=== PATIENT | female | born 1955 | race Caucasian/White ===

== ENCOUNTER 2021-03-16 15:36 | Outpatient (CLI) | payer MEDICARE, SELFPAY ==
--- NOTE | ~2021-03-16 | XR_ITS ---
EXAMINATION: XR chest 2V EXAM DATE: 03/16/2021 15:51 INDICATION: R09.89 - Doctor [place] Crackling In Lungs Today, No Other Hx. TECHNIQUE: Frontal and lateral projections of the chest obtained and reviewed. There is no prior charleen dy for comparison. FINDINGS: The lungs are hyperinflated which can be seen with chronic obstructive pulmonary disease ( a clinical diagnosis of functional impairment), but is not diagnostic of it. The lungs are clear. Th ere are no pleural effusions. The cardiomediastinal silhouette is within normal limits. There is no pneumothorax suspected. The bones and soft tissues are unremarkable. IMPRESSION: 1. No acute cardiopulmonary findings. 2. Hyperinflation. Reviewed, dictated and finalized at location A.
== END 2021-03-16 15:37 | disposition home or self-care (01) ==
LOC: ANHIMG 15:42
PROVIDERS: PCP Family Medicine; Visit Provider Family Medicine
DX: R09.89 Other specified symptoms and signs involving the circulatory and respiratory systems (principal)
CPT/HCPCS: 71046

== ENCOUNTER → 2021-05-14 14:43 | Outpatient (CLI) | payer MEDICARE, SELFPAY ==
--- NOTE | ~2021-05-14 | MM_ITS ---
EXAMINATION: MM screening raghu BI w chanelle HISTORY: Screening mammogram TECHNIQUE: Craniocaudal and mediolateral oblique 3-D tomosynthesis images were obtained and synthetic 2-D images were generated. Bilateral rotated lateral CC views. CAD analysis was submitted and interp reted. COMPARISON: No prior mammogram is available for comparison at this institution. BREAST PARENCHYMAL COMPOSITION: The breasts are heterogeneously dense, which may obscure small masses . FINDINGS: There is no evidence of suspicious mass, calcification, or architectural distortion to sugg est malignancy in either breast. There has been no suspicious interval change. IMPRESSION: 1. No mammographic evidence of malignancy. 2. Recommend routine screening mammography in one year. BI-RADS Category 1: Negative Reviewed, dictated and finalized at location A. COUNSELOR
== END ==
PROVIDERS: PCP Family Medicine; Visit Provider Family Medicine
DX: Z12.31 Encounter for screening mammogram for malignant neoplasm of breast (principal)
CPT/HCPCS: 77063; 77067

== ENCOUNTER 2021-05-18 00:37 | Day surgery (SDC) | payer MEDICARE, SELFPAY ==
[2021-04-29 14:58] VITALS: BMI 19.2
--- NOTE | 2021-05-18 08:24 | P.PNAN_ITS ---
Anes - Initial Pre Proc Eval Procedure: Operation Date: 05/18/21 13:00 Proposed Procedures p Screening Colonoscopy - Jean Pierre Mary MD Date/Time: 05/18/21 08:24 Surgeon: Jean Pierre Mary MD Pre Op Diagnosis: neoplasm screening Patient Data Age: 65 Gender: F Height: 1.75 m Weight: 59 kg Allergies Allergy/AdvReac Type Severity Reaction Status Date / Time No Known Allergies Allergy Verified 05/18/21 12:01 Home Medications Medication Instructions Recorded Confirmed Type loratadine 10 mg tablet 10 mg PO DAILY 03/16/21 04/29/21 History multivitamin 1 tablet PO DAILY 03/16/21 04/29/21 History Patient hx anesthesia problems: none Family hx anesthesia problems: none Results Review: All pre-operative results and documents have been reviewed as part of the pre-operative evaluation. [facility], [facility] Past Medical History Medical History (Updated 03/16/21 @ 15:04 by Andrzej Escobar MD) Abnormal lung sounds Nodule of skin of foot Screen for colon cancer Screening for lipid disorders Screening mammogram for breast cancer Seasonal allergies Family History Family History Other Breast cancer Hodgkin lymphoma Lung cancer Social History Social History Years smoked: 10 Smoking status: Former smoker Alcohol intake: current Drinks per week: 14 Alcohol use details: BEER OR WINE Substance use: current Substance use type: marijuana Other substance usage details: MAYBE ONCE A MONTH Living arrangements: with family Spiritual care concerns: No Anes - Eval Final PreProcedure Day of Procedure 05/18/21 08:24 Patient weight: thin Heart: regular rate and rhythm Lungs: clear to auscultation and normal air movement Airway: Mallampati scale class II Neurological: alert and oriented Last oral intake: >/= 8 hours ASA classification: III Emergent: no Anesthetic plan: proceed Anesthesia type and monitoring: general GIVS and standard monitoring Results Review: All pre-operative results and documents have been reviewed as part of the pre-operative evaluation. Informed Consent: The patient's anesthetic plan and its attendant risks and benefits were discussed with the patient/family/POA. Questions were solicited and answers provided to the satisfaction of the patient/family/POA.
[2021-05-18 12:02] VITALS: BP 143/79; PULSE 64; RESP 18; TEMP 36.1; O2SAT 97; BMI 19.8
[2021-05-18] MEDS: LACTATED RINGERS 1,000 ML 150 ML IV CONT (12:19)
--- NOTE | 2021-05-18 13:06 | PM.HPGS ---
History of Present Illness History of Present Illness Consent: Risks, benefits, and alternatives have been discussed and questions answered. Patient agrees to proceed with procedure. Chief complaint: neoplasm screening Narrative: Natalie Tejada is a 65 year old female here for screening colonoscopy, last one 2004 Review of Systems Constitutional: Constitutional: Denies headache(s) and Denies weakness Eyes: Eyes: Denies blurry vision ENT: Reports Normal hearing present, Denies headache(s) and Denies neck pain Cardiovascular: Cardiovascular: Denies chest pain and Denies dyspnea Respiratory: Respiratory: Denies dyspnea Gastrointestinal: Gastrointestinal: Reports no additional gastrointestinal complaints Genitourinary: Genitourinary: Denies dysuria Musculoskeletal: Musculoskeletal: Denies neck pain Integumentary/Breasts: Skin/Breast: Denies dry skin Neurologic: Reports Normal hearing present, Denies headache(s) and Denies weakness Psychiatric: Psychiatric: Denies anxiety Endocrine: Endocrine: Denies change in body appearance Hematologic/Lymphatic: Hematologic/Lymphatic: Denies easy bleeding Allergic/Immunologic: Allergic/Immunologic: Denies urticaria PMFSH Past Medical History Medical History (Updated 03/16/21 @ 15:04 by Andrzej Escobar MD) Abnormal lung sounds Nodule of skin of foot Screen for colon cancer Screening for lipid disorders Screening mammogram for breast cancer Seasonal allergies Family History Family History Other Breast cancer Hodgkin lymphoma Lung cancer Social History Social History Years smoked: 10 Smoking status: Former smoker Alcohol intake: current Drinks per week: 14 Alcohol use details: BEER OR WINE Substance use: current Substance use type: marijuana Other substance usage details: MAYBE ONCE A MONTH Living arrangements: with family Spiritual care concerns: No Meds Home Medications and Allergies Home Medications Medication Instructions Recorded Confirmed Type loratadine 10 mg tablet 10 mg PO DAILY 03/16/21 04/29/21 History multivitamin 1 tablet PO DAILY 03/16/21 04/29/21 History Allergies Allergy/AdvReac Type Severity Reaction Status Date / Time No Known Allergies Allergy Verified 05/18/21 12:01 Vital Signs Vital Signs - 24 hr 05/18/21 12:02 Temperature 97 F L Pulse Rate 64 Respiratory Rate 18 Blood Pressure 143/79 H Pulse Oximetry 97 Exam Const: General: comfortable and no acute distress HENMT: General nose exam: Normal nares present Eyes: General: appearance normal, both eyes and all related structures Neck: Neck: no JVD Resp: Auscultation: clear to auscultation bilaterally Cardio: Rate: regular rate Rhythm: regular rhythm GI: Inspection: non-distended GI Palp: Yes Soft to palpation Skin: General skin exam: normal color Neuro: General: gait normal Speech: normal speech Extrem: General: normal to inspection Psych: Mental Status: mental status grossly normal Assessment and Plan Assessment and plan (1) Screen for colon cancer: Code(s): Z12.11 - Encounter for screening for malignant neoplasm of colon Status: Acute Assessment and Plan: colonoscopy
[2021-05-18 13:30] VITALS: BP 154/91; PULSE 80; RESP 18; O2SAT 98
[2021-05-18 13:40] VITALS: BP 136/72; PULSE 76; RESP 19; O2SAT 100
[2021-05-18 13:50] VITALS: BP 119/53; PULSE 64; RESP 16; O2SAT 100
== END 2021-05-18 14:08 | disposition home or self-care (01) ==
PROVIDERS: PCP Family Medicine; Visit Provider Internal Medicine Gastroenterology
PROC: 0DJD8ZZ Inspection of Lower Intestinal Tract, Via Natural or Artificial Opening Endoscopic (ICD-10-PCS; CPT 45378; principal; 2021-05-18 13:00)
DX: Z12.11 Encounter for screening for malignant neoplasm of colon (principal); D12.0 Benign neoplasm of cecum; K63.5 Polyp of colon; K64.8 Other hemorrhoids; F12.90 Cannabis use, unspecified, uncomplicated; Z87.891 Personal history of nicotine dependence
CPT/HCPCS: 45380; 45385; 88305; J2704; J7120

== ENCOUNTER 2022-01-31 09:09 | Emergency (ER) | payer MEDICARE, SELFPAY ==
--- NOTE | 2022-01-31 09:11 | ED.SKABFB ---
HPI - Skin/Abscess/Foreign Bdy General Chief complaint: Animal Bite Stated complaint: cat bite on right arm/index finger Time Seen by Provider: 01/31/22 09:22 Source: patient and RN notes reviewed Mode of arrival: ambulatory Limitations: no limitations History of Present Illness HPI narrative: 66 year old female presents with concern for cat bite. She reports she was handling her cat yesterday at 1pm when it bit her right forearm and the second digit of her right hand. She reports yesterday evening it started to et red, swollen, and painful. She reports one of the puncture wounds had a small amount of purulent drainage. She cleaned it with peroxide. She does not report fever, malaise. MD complaint: other (cat bite) Related Data Allergies Allergy/AdvReac Type Severity Reaction Status Date / Time No Known Allergies Allergy Verified 01/31/22 09:25 Review of Systems Review of Systems: CONSTITUTIONAL: Denies malaise, chills, sweats, or fever. CARDIOVASCULAR: Denies chest pain, palpitations, or edema. RESPIRATORY: Denies cough or dyspnea. GASTROINTESTINAL: Denies abdominal pain, nausea, vomiting SKIN: Reports puncture wounds to the right forearm with surrounding redness, tenderness, warmth. Reports puncture wounds to the second digit of the right hand with redness, tenderness, warmth. MUSCULOSKELETAL: Denies joint pain or myalgia. NEUROLOGIC: Denies headache. All systems reviewed & are unremarkable except as noted in HPI and below PMFSH Past Medical History Medical History Abnormal lung sounds Nodule of skin of foot Screen for colon cancer Screening for lipid disorders Screening mammogram for breast cancer Seasonal allergies Family History Family History Other Breast cancer Hodgkin lymphoma Lung cancer Social History Social History Years smoked: 10 Smoking status: Former smoker (Quit 1994) Alcohol intake: current Drinks per week: 14 Alcohol use details: BEER OR WINE Substance use: current Substance use type: marijuana Other substance usage details: MAYBE ONCE A MONTH Gender identity (if verbalized by the patient): Female Spiritual care concerns: No Comments At time of signature, agree with nursing past medical, surgical, social and family history. There is no relevant family history pertinent to the presenting complaint Exam Narrative: GENERAL: Well-appearing, well-nourished, and in no acute distress. HEAD: Normocephalic, atraumatic. EYES: PERRLA, conjunctivae clear ENT: Mucous membranes moist. NECK: Supple. No lymphadenopathy CHEST: Clear to auscultation. No respiratory distress. HEART: Regular rate and rhythm. SKIN: Warm, dry. Distal second digit of the right hand has 2 puncture wounds with scabs with surrounding erythema, tenderness, warmth with sharp margins No drainage noted at that site. The forearm has 2 puncture wounds with approximately 10 cm x 6 cm area of erythema, warmth, tenderness, with sharp margins and no fluctuation noted to any area, no drainage visible. No vesicles, bullae, necrosis, ecchymosis, crepitus noted. NEURO: Alert and oriented x3. PSYCH: Normal mood and affect Course Course Emergency Course: Patient is aware of diagnosis, understands and agrees to treatment plan. Anticipatory guidance given. Patient agrees to follow-up as directed and is aware of reasons to seek care at the emergency department. Portions of this record may have been created with voice recognition software Level of Care: Express Care Visit Vital Signs Vital signs: Reviewed. MDM - Skin/Abscess/Foreign Bdy MDM Narrative Medical decision making narrative: Does not appear at this time to be erythema multiforme, bullous, SJS, TEN; no evidence at this time to suggest RMSF, NSTI, endocarditis or Lyme disease; patient looks wel
[2022-01-31 09:19] VITALS: BP 145/78; PULSE 90; RESP 16; TEMP 37.1; O2SAT 100
== END 2022-01-31 09:37 | disposition home or self-care (01) ==
PROVIDERS: Emergency Provider Nurse Practitioner; PCP Family Medicine
DX: S41.131A Puncture wound without foreign body of right upper arm, initial encounter (principal); S61.230A Puncture wound without foreign body of right index finger without damage to nail, initial encounter; L08.9 Local infection of the skin and subcutaneous tissue, unspecified; W55.01XA Bitten by cat, initial encounter; Z87.891 Personal history of nicotine dependence
CPT/HCPCS: 99213; G0463

== ENCOUNTER 2023-12-04 09:39 | Outpatient (CLI) | payer MEDICARE, SELFPAY ==
[2023-12-04 12:28] LABS: Hematocrit 36.3 % (37.0-47.0); Hemoglobin 11.6 g/dL (12.0-15.0); Mean Corpuscular Hemoglobin 30.2 pg (26-34); Mean Corpuscular Volume 94.5 fl (80-100); Mean Platelet Volume 10.8 fl (7.4-10.4); Platelet Count Result 296 k/mm3 (150-375); Red Blood Count 3.84 M/mm3 (4.2-5.4); Red Cell Distribution Width 14.9 % (11.5-14.5); White Blood Count 6.4 K/mm3 (4.5-10.0)
[2023-12-04 12:43] LABS: Anion Gap 7 mmol/L (4-12); Blood Urea Nitrogen 13 mg/dL (7-17); Carbon Dioxide 26 mmol/L (22-30); Chloride 107 mmol/L (98-107); Estimated Glomerular Filt Rate > 60; Glucose 97 mg/dL (65-110); Potassium 4.6 mmol/L (3.4-5.0); Sodium 140 mmol/L (137-145)
== END 2023-12-04 09:40 | disposition home or self-care (01) ==
PROVIDERS: PCP Family Medicine; Visit Provider Family Medicine
DX: R73.09 Other abnormal glucose (principal); J30.2 Other seasonal allergic rhinitis; H90.3 Sensorineural hearing loss, bilateral
CPT/HCPCS: 36415; 80048; 85027

== ENCOUNTER 2023-12-08 10:55 | Outpatient (CLI) | payer MEDICARE, SELFPAY | END 2023-12-08 10:56 | disposition home or self-care (01) | LOC: ANHAUDASC 10:57 | PROVIDERS: PCP Family Medicine; Visit Provider Family Medicine | DX: H93.13 Tinnitus, bilateral (principal); H90.3 Sensorineural hearing loss, bilateral | CPT/HCPCS: 92557; 92567 ==

== ENCOUNTER 2024-04-24 11:09 | Outpatient (CLI) | payer MEDICARE, SELFPAY ==
--- NOTE | ~2024-04-24 | MM_ITS ---
EXAMINATION: MM screening raghu BI w chanelle HISTORY: Screening mammogram TECHNIQUE: Craniocaudal and mediolateral oblique 3-D tomosynthesis images were obtained and synthetic 2-D images were generated. CAD analysis was submitted and interpreted. COMPARISON: 05/14/2021 BREAST PARENCHYMAL COMPOSITION:Dense: The breasts are heterogeneously dense, which may obscure small masses. FINDINGS: No suspicious mass, calcification, or architectural distortion are identified in either niels ast to suggest malignancy. There has been no suspicious interval change. IMPRESSION: No mammographic evidence of malignancy. Recommend routine screening mammography in one year. BI-RADS Category 1: Negative Reviewed, dictated and finalized at location . [employer]
== END 2024-04-24 11:10 | disposition home or self-care (01) ==
LOC: MICIMG 11:09
PROVIDERS: PCP Family Medicine; Visit Provider Family Medicine
DX: Z12.31 Encounter for screening mammogram for malignant neoplasm of breast (principal)
CPT/HCPCS: 77063; 77067